=== PATIENT | female | born 2005 | race Caucasian/White ===

== ENCOUNTER 2023-04-13 20:40 | Emergency (ER) | payer OTHER, BC ==
[~2023-04-13] VITALS: Ht 154.9 cm; Wt 108.8 kg
--- NOTE | 2023-04-13 20:57 | ED Upper Extremity ---
General Chief Complaint: Laceration Stated Complaint: RT HAND LAC Source: patient Exam Limitations: no limitations History of Present Illness Date Seen by Provider: Apr 13, 2023 Time Seen by Provider: 20:52 Initial Comments 18-year-old female presents to the ER with laceration to fourth digit of the right hand. 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 Last tetanus was February 2022. Allergies and Home Medications Allergies Coded Allergies: No Known Drug Allergies (Unverified , 04/13/23) Patient Home Medication List Home Medication List Reviewed: Yes Review of Systems Constitutional: see HPI Past [id number]-[id number]-[id number] Hx Patient Social History Tobacco Use?: No Substance use?: No Alcohol Use?: No Physical Exam Vital Signs Vital Signs - First Documented 04/13/23 20:55 Pulse 114 B/P (MAP) 124/87 (99) Pulse Ox 98 O2 Delivery Room Air Capillary Refill : Height, Weight, BMI Height: '" Weight: lbs. oz. kg; BMI Method: General Appearance: WD/WN, no apparent distress Neck: supple, normal inspection Cardiovascular: regular rate, rhythm Respiratory: lungs clear, normal breath sounds, no respiratory distress, no accessory muscle use Hand: normal ROM (Patient has full extension and flexion of fourth digit of right hand), Right, laceration Neurologic/Psychiatric: alert, normal mood/affect Skin: normal color, warm/dry Procedures/Interventions Wound Location: Upper Extremities Other Wound Location Right hand, fourth digit Wound Length (cm): 1 Wound's Depth, Shape: linear Wound Explored: clean Irrigated w/ Saline (ccs): 250 Anesthesia: 1% Lidocaine Volume Anesthetic (ccs): 1 Wound Debrided: minimal Suture: Ethlion Suture Size: 4-0 Number of Sutures: 3 Progress/Results/Core Measures Results/Orders My Orders Orders - ROGELIO LEACH APRN Lidocaine 1% Inj 10 Ml (Xylocaine 1% Inj (04/13/23 21:00) Lidocaine 1% Inj 20 Ml (Xylocaine 1% Inj (04/13/23 21:00) Medications Given in ED Current Medications Medications Dose Ordered Sig/[place] Route Start Time Stop Time Status Last Admin Dose Admin Lidocaine HCl 20 ml STK-MED ONCE .ROUTE 04/13/23 21:00 04/13/23 21:04 DC 11/14/23 21:11 20 ML Vital Signs/I&O 04/13/23 04/13/23 20:55 21:20 Pulse 114 104 B/P (MAP) 124/87 (99) 122/70 Pulse Ox 98 96 O2 Delivery Room Air Room Air Progress Progress Note : Progress Note Patient seen and evaluated, resting comfortably in recliner, no acute distress. Laceration repaired, see procedure note. Patient is up-to-date on her tetanus. Patient is stable for discharge. Discharge instructions and return precautions provided. Departure Impression Primary Impression: Laceration Disposition: HOME, SELF-CARE Condition: Stable Departure-Patient Inst. Decision time for Depature: 21:14 Referrals: NO,LOCAL PHYSICIAN (PCP/Family) Primary Care Physician Patient Instructions: Laceration Repair With Stitches ED Add. Discharge Instructions: You need to have the sutures removed in 7 to 10 days. You can return here or go to your primary care provider. Keep the wound clean and dry. You may wash your hands, let water and soap run over it, do not scrub, do not soak. Return for signs of infection including redness, swelling, discolored odorous drainage, or any other new, concerning, or worsening symptoms. All discharge instructions reviewed with patient and/or family. Voiced understanding. ROGELIO LEACH APRN Apr 13, 2023 20:57
[2023-04-13] MEDS ORDERED: LIDOCAINE 1% INJ 20 ML VIAL ONE (21:00)
[2023-04-13] MEDS ORDERED: LIDOCAINE 1% INJ 10 ML VIAL INJ ONE (21:00)
[2023-04-13 21:20] VITALS: BP 122/70
== END 2023-04-13 21:20 | disposition home or self-care (01) ==
LOC: ER 20:44
DX: S61.214A Laceration without foreign body of right ring finger without damage to nail, initial encounter (principal); W26.8XXA Contact with other sharp object(s), not elsewhere classified, initial encounter
CPT/HCPCS: 12001